=== PATIENT | male | born 1955 | race Caucasian/White ===

== ENCOUNTER 2021-08-15 07:45 | Day surgery (SDC) | payer OTHER ==
[~2021-08-15] VITALS: Ht 190.5 cm; Wt 99.1 kg
[~2021-08-15 07:45] MED LIST: ADVIL200 M1 PO; ALDACTONE25 MG PO; ALPHA LIPOIC A100 MG PO; CONSTULOSE10 GM/15 M PO; FUROSEMIDE40 MG PO; GRAPE SEED50 MG PO; K-TAB ER20 MEQ PO; LYCOPENE10 MG PO; METFORMIN HCL500 MG PO; PROPRANOLOL HCL60 M1 PO; SELENIUM200 MCG PO; VITAMIN A10000 UNIT PO; VITAMIN C250 MG PO; VITAMIN D310 MC4 PO
--- NOTE | 2021-08-15 10:06 | NUR ---
08/15/21 Santi6 VICTORIANO SWEET 0985-PATIENT ARRIVES TO PACU ON 10L. PATIENT IS ASLEEP. LAYING ON LEFT LATERAL SIDE. ORAL AIRWAY IN PLACE. PUT PATIENT ON 6L. RR EVEN. IVF INFUSION. SB.
--- NOTE | 2021-08-16 07:31 | OR ---
[facility] [address] [place], [place] [address] Signed DATE OF OPERATION: 08/15/2021 SURGEON: Marcus Patricio MD PREOPERATIVE DIAGNOSES: 1. Personal history of colonic polyps in 2018. 2. Diverticulosis. 3. Tattoo at 7 cm/left, lateral rectum (2018). 4. Transanal excision at 7 cm (2019), tubular adenomatous polyp. 5. Minimal internal hemorrhoids. POSTOPERATIVE DIAGNOSES: 1. Left-sided diverticulosis. 2. 5 mm polyp at 30 cm. 3. 5 mm polyp at 15 cm/rectosigmoid junction. 4. Minimal to moderate internal hemorrhoids. 5. Prominent distal rectal veins. PROCEDURE: Colonoscopy with hot biopsy. ESTIMATED BLOOD LOSS: None. INDICATIONS: Roberta is a 66-year-old gentleman, who had been asked to see me for followup endoscopy. We reviewed upper endoscopy, but he always declines. He is aware that he has esophageal varices on a CT scan done a couple years ago. He said he does not have any symptoms and therefore does not want the procedure. He is aware we do not have a electrician wiring here in [place], [place]. In that regard, he should see one of the decating machine operator in our region. In June 2018, I performed a colonoscopy for him while in the hospital. He had diverticulosis along with five polyps. He had a significant polyp at 7 cm in the left lateral position which we marked on either side with a tattoo. A year later in 2018, we repeated the colonoscopy. He had used an enormous amount of Versed and fentanyl on the 1st procedure. We therefore used monitored anesthesia care on the 2nd procedure. That worked out much better. Again, he had polyps removed along with some additional tissue at the tattoo site. He then went to see Dr. Rondon at our [facility] for transanal excision of that lesion due to the cirrhosis and his significant varices. That worked out well, unfortunately there was no cancer. He had a little residual tubular adenomatous tissue. He had been asked to follow up in one year Electronically Signed By: MARCUS PATRICIO MD 08/16/21 0731 PATIENT NAME: ROBERTA TAYLOR OPERATIVE REPORT DATE OF : 59 REPORT #: [id number] PHYSICIAN: MARCUS PATRICIO MD PCP: MARY SUGGS NP REPORT IS CONFIDENTIAL AND NOT TO BE RELEASED WITHOUT AUTHORIZATION [facility] [address] [place], [place] [address] Signed by his colorectal surgeon. However, the COVID pandemic broke out and that got delayed. Currently, he said he has no lower GI complaints. He does well with Metamucil and lactulose. We can see he saw Dr. Webster in 2000 for his liver biopsy. Dr. Webster has since moved out of our area. Therefore, he had been asked to see the securities research analyst at our [facility], but he never made it down to [place], [place]. He said there is no family history of colon cancer or polyps. PROCEDURE NOTE: I had met with Roberta in our preop area. After this, he was taken into the endoscopy suite and placed in the left lateral decubitus position. He is aware of endoscopy quite well. He knows there is risk including, but not limited to gas bloating, crampy abdominal pain, bleeding, perforation requiring surgery, and missed diagnosis. As before, he is aware we used monitored anesthesia care for his medical conditions, particularly the cirrhosis of the liver. He is an ASA 4. He was given propofol per our nurse allergist/pediatric pulmonologist and indeed he does take a large amount of propofol. A digital rectal exam was performed. He has some small external hemorrhoid tissue. He has good sphincter tone. His prostate is not particularly enlarged, although mildly indurated. The adult colonoscope had been introduced and advanced all around into the cecum under direct visualization of the camera without difficulty. His prep was quite good. We could easily see the appendiceal orifice and the ileocecal valve. We took pictures throughout for photodocumentation. The scope was then slowly withdrawn. He does have a few diverticula in the left and sigmoid colon. They were moderate in size, few in number, and scattered about. The two polyps mentioned above were easily removed with the help of hot biopsy forceps. We could easily see both tattoos in the rectum. The tissue in between is well healed. There is no evidence of any stricture, granulation tissue, or other concern. There is no evidence of any recurrent polyp. We could see prominent rectal veins in the distal rectum. The scope had been retroflexed and he has just minimal internal hemorrhoid tissue. After this, the gas was suctioned out and colonoscope removed. Roberta tolerated his procedure quite well. RECOMMENDATIONS: I will see Roberta back in my office in 7 to 14 days to review his results. It looks like he will be on the 5-year rotation. Marcus Patricio MD ALB/MODL /[id number] Electronically Signed By: MARCUS PATRICIO MD 08/16/21 0731 PATIENT NAME: ROBERTA TAYLOR OPERATIVE REPORT DATE OF : 59 REPORT #: [id number] PHYSICIAN: MARCUS PATRICIO MD PCP: MARY SUGGS NP REPORT IS CONFIDENTIAL AND NOT TO BE RELEASED WITHOUT AUTHORIZATION [address] [place] [address] Signed cc: MD Mary [place] NP Copies: MARCUS PATRICIO MD ~ Electronically Signed By: MARCUS PATRICIO MD 08/16/21 0731 PATIENT NAME: ROBERTA TAYLOR OPERATIVE REPORT DATE OF : 59 REPORT #: [id number] PHYSICIAN: MARCUS PATRICIO MD PCP: MARY SUGGS NP REPORT IS CONFIDENTIAL AND NOT TO BE RELEASED WITHOUT AUTHORIZATION
--- NOTE | 2021-08-16 15:51 | PATH ---
[facility] [address] [place], [place] [address] Signed SPECIMEN(S): A POLYP AT 30 CM SPECIMEN(S): B POLYP AT 15 CM SPECIMEN SOURCE: A. POLYP AT 30 CM B. POLYP AT 15 CM CLINICAL HISTORY: Colonoscopy. Personal history of colon polyps, diverticulosis. Postop Dx: Hemorrhoids, diverticulosis, polyps. MICROSCOPIC DESCRIPTION: Histologic sections of all submitted blocks are examined by light microscopy. These findings, together with the gross examination, support the pathologic diagnosis. FINAL PATHOLOGIC DIAGNOSIS: A. Colon, 30 cm, polypectomy: - Tubular adenoma. B. Colon, 15 cm, polypectomy: - Tubular adenoma. BRP:caw:C2NR GROSS DESCRIPTION: Two specimens are received in two containers, labeled "RD." A. The specimen, labeled "RD, colon polyp at 30 cm," is received in formalin and consists of one matthews soft tissue fragment that measures 0.2 cm in greatest dimension. The specimen is entirely submitted in cassette (A1). B. The specimen, labeled "RD, colon polyp at 15 cm," is received in formalin and consists of two matthews soft tissue fragments that measure 0.2 cm in greatest dimension. The specimen is entirely submitted in cassette (B1). JS (under the direct supervision of a pathologist) The Gross Description was prepared using a voice recognition system. The report was reviewed for accuracy; however, sound-alike word errors, addition and/or deletions may occur. If there is any question about this report, please contact Client Services. PERFORMING LABORATORY: The technical component was performed by [facility], [address] [place] [id number] (Spanish Instructor: Vanessa Fofana MD; CLIA# [id number]). PATIENT NAME: ROBERTA TAYLOR PATHOLOGY DATE OF : 59 REPORT #: [id number] PHYSICIAN: DULCE LANDA PCP: TIGIST SUGGS NP REPORT IS CONFIDENTIAL AND NOT TO BE RELEASED WITHOUT AUTHORIZATION [facility] [address] [place], [place] [address] Signed [facility], [address] [address] (CLIA# [id number]). Diagnostician: Tong Padilla MD Pathologist Electronically Signed 08/16/2021 Copies: ~ PATIENT NAME: ROBERTA TAYLOR PATHOLOGY DATE OF : 59 REPORT #: [id number] PHYSICIAN: DULCE LANDA PCP: TIGIST SUGGS CHARGE ENTRY CLERK REPORT IS CONFIDENTIAL AND NOT TO BE RELEASED WITHOUT AUTHORIZATION
== END 2021-08-15 10:55 | disposition home or self-care (01) ==
LOC: OPS 07:45 → DS 07:45 → OPS 08:15 → DS 08:15 → OPS 10:55
PROVIDERS: ATTEND Colon & Rectal Surgery
PROC: 0DBE8ZZ Excision of Large Intestine, Via Natural or Artificial Opening Endoscopic (ICD-10-PCS; principal; 2021-08-15 08:15)
DX: D12.7 Benign neoplasm of rectosigmoid junction (principal); D12.6 Benign neoplasm of colon, unspecified; K57.30 Diverticulosis of large intestine without perforation or abscess without bleeding; K64.4 Residual hemorrhoidal skin tags; K74.60 Unspecified cirrhosis of liver; I10 Essential (primary) hypertension; F17.220 Nicotine dependence, chewing tobacco, uncomplicated; I85.10 Secondary esophageal varices without bleeding; E11.9 Type 2 diabetes mellitus without complications; G89.29 Other chronic pain; F10.11 Alcohol abuse, in remission; Z86.010 Personal history of colon polyps; Z79.84 Long term (current) use of oral hypoglycemic drugs
CPT/HCPCS: 85610; J2704; J7121

== ENCOUNTER 2023-01-08 14:33 | Emergency (ER) | payer MEDICARE, OTHER ==
[~2023-01-08] VITALS: Ht 190.5 cm; Wt 97.9 kg
[2023-01-08] MEDS ORDERED: CLEOCIN HCL300 MG PO (16:30)
[2023-01-08] MEDS ORDERED: PREDNISONE20 MG PO (16:30)
== END 2023-01-08 16:36 | disposition home or self-care (01) ==
LOC: ED 14:33
DX: K04.7 Periapical abscess without sinus (principal); E11.9 Type 2 diabetes mellitus without complications; I10 Essential (primary) hypertension; Z79.899 Other long term (current) drug therapy; Z79.84 Long term (current) use of oral hypoglycemic drugs
CPT/HCPCS: 41800; 99282-25